=== PATIENT | female | born 1930 | race Caucasian/White ===

== ENCOUNTER → 2017-01-21 | Outpatient (CLI) | payer OTHER | LOC: FIMAGING 07:57 | PROVIDERS: ATTEND Physical Medicine & Rehabilitation | DX: M51.36 Other intervertebral disc degeneration, lumbar region (principal); M47.896 Other spondylosis, lumbar region; M43.16 Spondylolisthesis, lumbar region ==

== ENCOUNTER 2018-02-06 14:56 | Emergency (ER) | payer OTHER ==
--- NOTE | 2018-02-06 14:58 | EDPHY ---
H & P Time Seen by Provider: 02/06/18 14:58 Constitutional: Initial Vital Signs Temperature (C) 36.6 C 02/06/18 14:56 Heart Rate 95 02/06/18 14:56 Respiratory Rate 20 02/06/18 14:56 Blood Pressure 146/73 H 02/06/18 14:56 O2 Sat (%) 94 02/06/18 14:56 O2 Delivery Mode Room Air Allergies/Adverse Reactions: No Known Allergies Allergy (Verified 02/06/18 15:24) Home Medications: Medication Instructions Recorded Levothyroxine 06/02/14 Losartan Potassium 06/02/14 MIRTAZAPINE 06/02/14 Meclizine HCl 06/02/14 Tylenol 06/02/14 Zaleplon 06/02/14 traMADol [Ultram 50 mg (*)] 50 mg PO Q6 PRN #10 tab 06/02/14 Cephalexin [Keflex (*)] 500 mg PO TID #21 cap 09/29/15 Ondansetron Odt [Zofran Odt 4 mg 4 mg PO Q4 PRN #20 tab 09/29/15 (RX)] Medical Decision Making Differential Diagnosis: CHIEF COMPLAINT: Diarrhea HISTORY OF PRESENT ILLNESS: The patient is an 87 y/o female with a history of cardiac stents and bladder surgery arriving via EMS complaining of one episode of diarrhea this afternoon. She had salmon for lunch today and had mild abdominal cramping afterwards. After the abdominal cramps she was unable to make it to the restroom and had one episode of diarrhea covering her legs from the waist down. Her son found her on the ground and thought she slipped on the diarrhea. She is feeling okay now, but has mild back pain which is normal for her. Denies fevers, chills, shortness of breath, chest pain, numbness, paresthesias. REVIEW OF SYSTEMS: A 10 point review of systems was performed and is negative with the exception of the elements mentioned in the history of present illness. PHYSICAL EXAM: HR, BP, O2 Sat, RR. Temp noted General Appearance: Alert, well hydrated, appropriate, and non-toxic appearing. Head: Atraumatic without scalp tenderness or obvious injury Eyes: Pupils equal, round, reactive to light and accommodation, EOMI, no trauma , no injection. Ears: Clear bilaterally, no perforation, normal landmarks Nose: Atraumatic, no rhinorrhea, clear. Throat: There is no erythema or exudates, no lesions, normal tonsils, mucus membranes moist. Neck: Supple, nontender, no lymphadenopathy. Respiratory: No retractions, no distress, no wheezes, and no accessory muscle use. Lungs are clear to auscultation bilaterally. Cardiovascular: Regular rate and rhythm, no murmurs, rubs, or gallops. Good capillary refill all extremities. Gastrointestinal: Abdomen is soft, mild lower abdominal tenderness to palpation , non-distended, no masses, no rebound, no guarding, no peritoneal signs. Musculoskeletal: Normal active ROM of all extremities, atraumatic. Neurological: Alert, appropriate, and interactive. Nonfocal neuro Skin: No rashes, good turgor, no nodules on palpation. Past medical history: Hypothyroid, chronic back pain Past surgical history: Cardiac stents, bladder surgery Family history: Denies Social history: Family at bedside, lives at [facility], retired DIFFERENTIAL DIAGNOSIS: The differential diagnosis for the patient's diarrhea included but was not limited to incontinence, C. Diff, gastroenteritis, gastritis, appendicitis, and medication side effect. MEDICAL DECISION MAKING: The patient is an 87 y/o female with a history of cardiac stents and bladder surgery arriving via EMS presenting with one episode of diarrhea today. On exam she has mild lower abdominal tenderness to palpation. At this time she would not like to have laboratory or imaging tests preformed. 1539: Reassessed patient and discussed plan for home care. Case management has assessed the patient and have set up home care for next week. Patient's family will transport the patient back to [facility]. Return precautions provided; patient and her family are comfortable with this plan. Departure - Departure Disposition: Home, Routine, Self-Care Clinical Impression: Diarrhea Qualifiers: Diarrhea type: unspecified type Qualified Code(s): R19.7 - Diarrhea, unspecified Condition: Good Instructions: Acute Diarrhea (ED) Additional Instructions: 1. Clear liquids for 24 hours. 2. Advance diet as tolerated. I suggest the BRAT diet to start: bananas, rice, applesauce and toast. 3. Return for worsening symptoms, persistent diarrhea, vomiting, abdominal pain , any concerns. Referrals: [facility],. [Clinic] - As per Instructions Izaiah Ho MD [Medical Doctor] - As per Instructions Report Scribed for: Jayce Camargo Report Scribed by: Nazanin Morin Date of Report: 02/06/18 Time of Report: 14:57
[2018-02-06 16:07] VITALS: BP 139/76
--- NOTE | 2018-02-06 16:37 | ASMTCMCOM ---
CM Note CM Note Notes: Pt transported to the Emergency Department via EMS s/p a fall with acute diarrhea. Family at bedside. Asked to see pt by [facility] and [facility] for assistance with transportation and home care. Met with pt and family to discuss current situation. Pt states she lives at [facility] and is current with home care. She believes she has "[facility]" but isn't sure. Pt's son and [id number] at bedside. P's dghtr/BERTHA Aubree to bedside. Aubree unsure of home care company name. Aubree assured CM she would reach out to the home care company today to try to arrange a visit for [place] 02/07/18, per Dr. Camargo's request. Pt is currently scheduled for two therapies (including nursing) on 02/08/18. [facility] also reports pt has a visiting MD who will see her early next week. Pt spent prolonged amount of time talking about what happened today. Pt reports "having a bought of diarrhea the likes of which no one has ever seen." Pt very concerned her entire apartment is covered in stool. Family provided reassurance that they will clean everything up when they get back to her apartment. Pt given anti-skid socks and a gown for discharge (pt's clothing soiled with stool). Encouraged family to call CM with any further issues or concerns. Date Signed: 02/06/2018 04:36 PM Electronically Signed By:Bita Lamb RN
--- NOTE | 2018-02-06 16:59 | ASDISCHSUM ---
Discharge Information Plan Status:Home with No Needs Medically Cleared to Leave:02/06/2018 Discharge Date:02/06/2018 04:07 PM CM D/C Disposition:Home, Routine, Self-Care ADT D/C Disposition:Home, Routine, Self-Care Projected Discharge Date:02/06/2018 04:07 PM Transportation at D/C:Family Discharge Delay Reason: Follow-Up Date:02/06/2018 04:07 PM Discharge Slot:2 - 12:01 pm - 18:00 pm Final Diagnosis:Acute diarrhea Placement Information Patient Contact Information Contact Name:ERIC Relationship:Daughter Address: Work Phone: City:[place] Alternate Phone: [facility]/[employer] Code:[place] Email: Financial Information Financial Class:Medicare Advantage Plans Primary Plan Desc:[facility] COM[facility]TE Primary Plan Number:[id number] Secondary Plan Desc: Secondary Plan Number: Assessment Information [facility] CM Progress Note CM Note CM Note Notes: Pt transported to the Emergency Department via EMS s/p a fall with acute diarrhea. Family at bedside. Asked to see pt by [facility] for assistance with transportation and home care. Met with pt and family to discuss current situation. Pt states she lives at [facility] and is current with home care. She believes she has [facility]" but isn't sure. Pt's son and [id number] at bedside. P's ira/Aubree STONE to bedside. Aubree unsure of home care company name. Aubree assured CM she would reach out to the home care company today to try to arrange a visit for [place] 02/07/18, per Dr. Camargo's request. Pt is currently scheduled for two therapies (including nursing) on Thu[facility]/18[facility] a visiting MD who will see her early next week. Pt spent prolonged amount of time talking about what happened today. Pt reports "having a bought of diarrhea the likes of which no one has ever seen." Pt very concerned her entire apartment is covered in stool. Family provided reassurance that they will clean everything up when they get back to her apartment. Pt given anti-skid socks and a gown for discharge (pt's clothing soiled with stool). Encouraged family to call CM with any further issues or concerns. Date Signed: 02/06/2018 04:36 PM Electronically Signed By:Bita Lamb RN Intervention Information Intervention Type:Transportation Date of Service:02/06/2018 04:37 PM Patient Type:Emergency Room Staff Member:[facility] Lamb Taylor Hours:0.25 Discipline: Severity: Comment:Family to provide transportation back to [facility].
== END 2018-02-06 16:07 | disposition home or self-care (01) ==
LOC: EDUNIT#
DX: R19.7 Diarrhea, unspecified (principal); Z95.5 Presence of coronary angioplasty implant and graft